=== PATIENT | female | born 1930 | race Caucasian/White ===

== ENCOUNTER 2018-09-06 10:19 | Outpatient (CLI) | payer MEDICARE, MEDICAID ==
[~2018-09-06] VITALS: Ht 162.6 cm; Wt 52.3 kg
[2018-09-06 12:18] VITALS: Ht 162.6 cm; Wt 52.3 kg
--- NOTE | 2018-09-06 15:03 | NUR ---
1449 1ST UNIT BLOOD HAS COMPLETED LINE BEING FLUSHED WITH NS. DENIES PROBLEMS WITH TRANSFUSIO 1500 2ND UNIT CHECKED AT BEDSIDE BY DAWN BASHIR RN AND CHRISTINA MACDONALD RN INITIATED AT 50/CC/HR.
--- NOTE | 2018-09-06 17:32 | NUR ---
1705 IV DC'D WITH CATH INTACT DENIES PROBLEMS WITH TRANSFUSION. DAUGHTER HERE RELEASED IN WC WITH ESCORT.
== END 2018-09-06 17:10 | disposition home or self-care (01) ==
LOC: D.OPS 10:19
PROVIDERS: ATTEND Family Medicine
DX: D64.9 Anemia, unspecified (principal)